=== PATIENT | female | born 2000 | race Caucasian/White ===

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

== ENCOUNTER 2023-02-27 15:00 | Outpatient (RCR) | payer MEDICAID, SELFPAY | END 2023-03-21 14:15 | disposition home or self-care (01) | LOC: HO.PT 15:00 | PROVIDERS: PCP Nurse Practitioner; Visit Provider Nurse Practitioner | DX: M41.129 Adolescent idiopathic scoliosis, site unspecified (principal) | CPT/HCPCS: 97110; 97161 ==

== ENCOUNTER 2023-08-21 22:00 | Emergency (ER) | payer MEDICAID, SELFPAY ==
--- NOTE | ~2023-08-21 | CT_ITS ---
EXAMINATION: CT HEAD WITHOUT CONTRAST CLINICAL INFORMATION: Fall. Head strike. COMPARISON: CT head 02/23/2020. TECHNIQUE: Contiguous axial imaging was performed from the skull base to vertex without intravenous administration of contrast. This CT examination was performed using dose optimization techniques as appropriate, variously including the following: *Automated exposure control *Adjustment of mA and/or kV according to patient size (this includes techniques or standardized protocols for targeted exams where dose is matched to indication/reason for exam; i.e. extremities or head) *Use of iterative reconstruction technique DLP: 597 mGy-cm FINDINGS: No intracranial hemorrhage, tumors or acute infarcts identified. The ventricles and sulci are normal in size and configuration. No focal parenchymal lesions of the brain identified. The orbits and globes are partially included in the image [id number] and demonstrate no abnormalities. No gross extracranial soft tissue inflammatory changes. No significant opacification of the visualized paranasal sinuses, mastoid air cells and middle ear cavities. CT/CT head/brain wo IV con IMPRESSION: No acute intracranial abnormalities.
--- NOTE | ~2023-08-21 | XR_ITS ---
EXAMINATION: XR CERVICAL SPINE CLINICAL INFORMATION: Neck pain after fall COMPARISON: None available. TECHNIQUE: 3 views of the cervical spine were obtained. FINDINGS: There are no prevertebral soft tissue or bony abnormalities demonstrated aside from reversal of the normal cervical lordosis. No compression fractures or subluxations are identified. Alignment is maintained at the atlanto-axial articulation. The disc spaces are preserved. No endplate changes are seen. The prevertebral soft tissues are normal. XR/XR cervical spine 2V IMPRESSION: Reversal of the normal cervical lordosis. No evidence of an acute traumatic injury.
--- NOTE | ~2023-08-21 | XR_ITS ---
EXAMINATION: XR SHOULDER, LEFT CLINICAL INFORMATION: Fall off skateboard COMPARISON: None available. TECHNIQUE: Three views of the left shoulder. FINDINGS: Glenohumeral alignment appears anatomic. No acute fracture is seen. There is slight elevation of the distal clavicle relative to the acromion, for which grade 2 acromioclavicular joint injury is a possibility. XR/XR shoulder LT min 2V IMPRESSION: Slight elevation of the distal clavicle relative to the acromion, which can be seen with grade 2 acromioclavicular joint injury.
[2023-08-21 22:09] VITALS: BP 101/69; PULSE 95; RESP 17; TEMP 36.2; O2SAT 99; BMI 21.0
[2023-08-22 00:27] VITALS: BP 101/50; PULSE 90; RESP 20; TEMP 36.8; O2SAT 98
[2023-08-22 06:39] VITALS: BP 102/68; PULSE 66; RESP 14; TEMP 36.8; O2SAT 98
--- NOTE | 2023-08-22 06:45 | ED_ITS ---
HPI - General Adult General Chief complaint: Fall Stated complaint: fell of skateboard, hit shoulder and head Time Seen by Provider: 08/22/23 06:41 Source: patient Mode of arrival: ambulatory Limitations: no limitations History of Present Illness ED Provider: Rachele Barros PA-C HPI narrative: This is a 23 yo female pmh of paranoia, migraine, substance or medication induced psychotic disorder presents with left shoulder pain and head pain after falling from her skateboard last night around 8pm. Patient states she was coming around a hill, lost her balance, and fell, landing on her left shoulder and the left side of her head. Denies LOC. Patient reports her headache is barely present anymore and rates the pain a 1-2/10 at time of examination. Patient also denies nausea, vomiting, chest pain, SOB, dizziness, blurry vision, numbness, tingling, weakness, difficulty ambulating. No trauma to teeth. Patient not on blood thinners. Related Data Home Medications ?Medication ?Instructions ?Recorded ?Confirmed norethindrone (contraceptive) 0.35 1 tab PO DAILY 02/24/20 02/24/20 mg tablet sumatriptan succinate 50 mg tablet mg PO 03/04/20 Previous Rx's ?Medication ?Instructions ?Recorded lorazepam 0.5 mg tablet 0.5 mg PO BID PRN anxiety #10 tabs 03/04/20 risperidone 0.5 mg tablet 0.5 mg PO DAILY PRN Psychosis 30 03/04/20 days #30 tabs risperidone 2 mg tablet 2 mg PO BID 30 days #60 tabs 03/04/20 trazodone 50 mg tablet 50 mg PO BEDTIME PRN Insomnia 30 03/04/20 days #30 tabs ketorolac 10 mg tablet 10 mg PO TID PRN pain 5 days #15 08/22/23 tabs Allergies Allergy/AdvReac Type Severity Reaction Status Date / Time No Known Allergies Allergy Verified 08/21/23 22:09 Review of Systems Review of Systems: Yes all other systems are reviewed and are negative PMFSH Past Medical History Attestation statement: The following information was validated with the patient. Source: old records reviewed and nursing notes reviewed Medical History No known health problems Migraine Social History Social History Household Members: None Housing: House Do you presently have visiting nurse or other home services: No Comment: pt feels like she may have to go Substance Use Type: Marijuana Advance Directives: No Advance Directives Information Provided: Yes Do you have a plan to hurt others: No Plan service: No Sexual orientation: Straight/Heterosexual Physical Exam ED Vital Signs: Vital Signs - 24 hr 08/21/23 22:09 08/22/23 00:27 08/22/23 06:39 Temperature 97.1 F 98.3 F 98.3 F Pulse Rate 95 90 66 Respiratory Rate 17 20 14 Blood Pressure 101/69 101/50 L 102/68 Pulse Oximetry 99 98 98 Oxygen Delivery Method Room Air Room Air Room Air BMI result Body Mass Index 21.0 vss. Appearance: Alert.? Oriented X3.? No acute distress.? Head: + Mild tenderness to palpation on left side. Normocephalic, atraumatic, no step-offs or deformities Eyes: Pupils equal, round and reactive to light.? Neck: Normal inspection.? Neck supple.? CVS: Normal heart rate and rhythm.? Pulses normal.? Respiratory: No respiratory distress.? Breath sounds normal.? Abdomen: Soft and nontender.? Skin: Skin warm and dry.? Normal skin color.? Normal skin turgor.? Extremities: + Mild tenderness to palpation of left distal clavicle. Patient has discomfort with ROM. 2+ brachial, radial, ulnar pulses equal and symmetric bilaterally. Back: No midline tenderness, no C-spine tenderness, full range of motion Neuro: Oriented X 3.? No motor deficit.? No sensory deficit. CN 2-12 intact Course Reevaluation(s) Reevaluation #1: X-ray of cervical spine reversal of the normal cervical lordosis no evidence of acute traumatic injury. No point tenderness on exam. Full range of motion painless. This is likely whiplash/neck spasm. Unlikely fracture, dislocation, cervical myelopathy. Head CT no acute intracranial abnormalities. Neurological function intact. Headache has resolved. This is likely concussion. X-ray of left shoulder slight elevation of the distal clavicle relative to the acromion which can be seen with grade 2 AC joint injury. Educated patient on diagnosis and treatment plan, answered all question, patient verbalizes understanding. At this time patient will be discharged home, advised to return with new or worsening symptoms. Educated on worrisome signs and symptoms and when to return. At this time I feel comfortable discharge home. Time: 10:35 Medications Administered Discontinued Medications Generic Name Dose Route Start Last Admin Trade Name Tamar PRN Reason Stop Dose Admin Ketorolac Tromethamine 30 mg 08/22/23 06:41 08/22/23 08:01 Ketorolac Tromethamine 30 Mg/Ml Vial IM 08/22/23 06:42 30 mg ONCE ONE Administration Medical Decision Making Medical Decision Making [facility] Narrative: 629 23 yo female presents with head pain and left shoulder pain status post fall off skateboard around 8pm last night. +head strike. Denies LOC, denies thinners. PE: Head: + Mild tenderness to palpation on left side. Normocephalic, atraumatic, no step-offs or deformities Extremities: + Mild tenderness to palpation of left distal clavicle. Patient has discomfort with ROM. 2+ brachial, radial, ulnar pulses equal and symmetric bilaterally. Differential: Left AC joint injury/separation at the distal clavicle, concussion. Unlikely brain bleed, fracture or dislocation, neurovascular c ompromise, threat to limb. No acute trauma to chest, abdomen, or pelvis. Plan: Imaging, pain control, sling Differential Diagnosis Differential Diagnoses: The differential diagnosis associated with the presentation includes (Left AC joint injury/separation at the distal clavicle, concussion. Unlikely brain bleed, fracture or dislocation, neurovascular compromise, threat to limb. No acute trauma to chest, abdomen, or pelvis. ) Left AC joint injury/separation at the distal clavicle, concussion. Unlikely brain bleed, fracture or dislocation, neurovascular compromise, threat to limb. No acute trauma to chest, abdomen, or pelvis. Admission/Observation Consideration of admission/observation: Escalation of care including admission/observation considered (Unlikely) Lab Data [facility] Lab Attestation statement: I reviewed the patient's lab results. Independent Interpretation I performed an independent interpretation of an: Plain X-Ray (XR/XR shoulder LT min 2V IMPRESSION: Slight elevation of the distal clavicle relative to the acromion, which can be seen with grade 2 acromioclavicular joint injury. ) and CT Scan (CT/CT head/brain wo IV con IMPRESSION: No acute intracranial abnormalities. ) Radiology Impression Discussion of test interpretation with radiology: I have reviewed the radiologist's reading. External Record Review External record reviewed: Inpatient record, Outpatient record, Prior outpatient labs, Prior outpatient radiology and Outside ED record Prescription Management I considered prescription management with: Pain Medication Chronic Conditions Patient?s care impacted by: Other (Paranoia, migraines) Discharge Plan Discharge Clinical Impression: Fall from skateboard, Separation of left acromioclavicular joint, type 2, Concussion without loss of consciousness Patient Disposition: Home, Self-Care Instructions: Concussion (ED), Shoulder Sprain (ED), Post Concussion Syndrome (ED) Additional Instructions: Take your medications as prescribed. If you were prescribed antibiotics today, it is important that you take your medication to their entirety, do not skip any doses, do not finish them early. Follow-up with your primary care provider this week. Return to the emergency department with new or worsening symptoms. Such as fevers, chills, chest pain, shortness of breath, nausea, vomiting, dizziness, headache, vision changes, lethargy In case of emergency call 911 Toradol has been sent to your pharmacy, you tolerated this well in the depart ment. Please take this as prescribed do not take this with ibuprofen, or other NSAIDs, do not mix this with alcohol. Side effects of this medication including increased risk for bleeding and possible kidney injury. Dont wear your sling at night Prescriptions: New ketorolac 10 mg tablet 10 mg PO TID PRN (Reason: pain) 5 Days Qty: 15 0RF No Action norethindrone (contraceptive) 0.35 mg tablet 1 tab PO DAILY lorazepam 0.5 mg tablet 0.5 mg PO BID PRN (Reason: anxiety) Qty: 10 0RF sumatriptan succinate 50 mg tablet PO trazodone 50 mg Tablet 50 mg PO BEDTIME PRN (Reason: Insomnia) 30 Days Qty: 30 0RF risperidone 2 mg Tablet 2 mg PO BID 30 Days Qty: 60 0RF risperidone 0.5 mg Tablet 0.5 mg PO DAILY PRN (Reason: Psychosis) 30 Days Qty: 30 0RF Referrals: [facility] [Provider Group] - 2 days Arlyn Gomes APRN [Primary Care Provider] - 2 days Stand Alone Forms: Work/School Release Interventions: ED Discharge Assessment Last Done: 08/22/23 10:35 Print Language: Belizean
[2023-08-22] MEDS: Ketorolac Tromethamine 30 MG/ML VIAL IM (08:01)
[2023-08-22 10:35] VITALS: BP 102/68; PULSE 66; RESP 14; TEMP 36.8; O2SAT 98
--- OUTSIDE RECORDS SUMMARY | 2023-08-23 10:50 | XMS_ITS | Continuity of Care Document ---
Author Organization [facility] [address] [place] [address]- Care Team Providers Care Waste Examiner Name Role Phone Dillon CONNORS, Theo Ramos Primary Care Physician Encounter PSS Date(s): 09/09/19 - 09/16/19 [facility] [address] [place] [address]- [facility] Attending Physician: Not on Staff, Attending MD Allergies, Adverse Reactions, Alerts Substance Reaction Severity Status NKA Active Immunizations Given and Recorded Vaccine Date Status Refusal Reason meningococcal group B vaccine 12/18/18 Given meningococcal group B vaccine 1 12/10/17 Given influenza virus vaccine, inactivated 12/18/18 Give n influenza virus vaccine, inactivated 2 12/10/17 Gi lupis influenza virus vaccine, inactivated 3 11/29/16 Gi lupis influenza virus vaccine, inactivated 4 11/29/15 Gi lupis influenza virus vaccine, inactivated 5 12/01/14 Gi lupis influenza virus vaccine, inactivated 12/30/13 Give n influenza virus vaccine, inactivated 6 11/21/11 Gi lupis Meningococcal Conjugate Vaccine 7 12/10/17 Given Meningococcal Conjugate Vaccine 11/26/12 Given Human Papillomavirus Vaccine 8 07/01/14 Given Human Papillomavirus Vaccine 9 02/02/14 Given Human Papillomavirus Vaccine 10 11/30/13 Given tetanus/diphtheria/pertussis, acel(Tdap) 11/26/12 Given FluMist (oldterm) 11/26/12 Given Hepatitis A Pediatric Vaccine 11 11/21/11 Given Hepatitis A Pediatric Vaccine 11/15/10 Given influenza virus vaccine, live 11/15/10 Given influ virus vac, H1N1, inactive(oldterm) 12 04/07/09 Given Influenza Live (intranasal) (oldterm) 12/11/08 Giv en Influenza Live (intranasal) (oldterm) 03/25/08 Giv en Poliovirus Vaccine, Inactivated 10/11/06 Given Poliovirus Vaccine, Inactivated 11/27/02 Given Poliovirus Vaccine, Inactivated 01 Given Poliovirus Vaccine, Inactivated 01 Given Varicella Virus Vaccine 10/11/06 Given Varicella Virus Vaccine 13 05/12/02 Given Diphth/Pertussis,Acel/Tetanus (oldterm) 10/11/06 G iven Diphth/Pertussis,Acel/Tetanus (oldterm) 11/27/02 G iven Diphth/Pertussis,Acel/Tetanus (oldterm) 01 G iven Diphth/Pertussis,Acel/Tetanus (oldterm) 01 G iven Diphth/Pertussis,Acel/Tetanus (oldterm) 01 G iven Measles/Mumps/Rubella Virus Vaccine 06/06/05 Given Measles/Mumps/Rubella Virus Vaccine 08/18/02 Given Prevnar Inj (oldterm) 11/27/02 Given Prevnar Inj (oldterm) 02/17/02 Given Prevnar Inj (oldterm) 01 Given Prevnar Inj (oldterm) 01 Given Haemophilus B Conj Vaccine (oldterm) 08/18/02 Give n Haemophilus B Conj Vaccine (oldterm) 01 Give n Haemophilus B Conj Vaccine (oldterm) 01 Give n Haemophilus B Conj Vaccine (oldterm) 01 Give n Hepatitis B Vaccine (old term) 02/17/02 Given Hepatitis B Vaccine (old term) 01 Given Hepatitis B Vaccine (old term) 01 Given 1Result Comment: [12/10/2017] Mary Lynne CNP 2Result Comment: [12/10/2017] Mary Lynne CNP 3Result Comment: [11/29/2016] Malathi Little NP 4Result Comment: [11/29/2015] ordered by Jagjit Morris M.D. 5Result Comment: [12/01/2014] Dr. Chauhan 6Admin Note: vis given private 7Result Comment: [12/10/2017] Mary Lynne CNP 8Result Comment: [07/01/2014] Dr. Quinteros 9Result Comment: [02/02/2014] Ordered by Mary Lynne NP 10Result Comment: [11/30/2013] Ordered by Irene Ron [facility] 11Admin Note: vis given 01/09/2011 state 12Admin Note: vis given state screening questions negative 13Admin Note: Varivax VIS 05/28/08 given Medications amitriptyline 25 mg oral tablet 25 mg, 1, tablet, By Mouth, Daily at bedtime, per Neurology, Refills 0, Maintenance, 04/02/19 12:36:00 EST Start Date: 04/02/19 Status: Ordered June Fe 04/06 oral tablet 1 tablet, By Mouth, Daily, # 84 tablet, 4 Refills, Maintenance, 08/22/18 17:44:47 EDT, Tablet, 1 tablet By Mouth Daily Start Date: 08/22/18 Status: Ordered magnesium gluconate 250 mg oral tablet 1 tablet = 250 mg, By Mouth, 2 times a day, # 60 tablet, 0 Refills, Maintenance, 11/20/18 15:29:48 EDT, Tablet Start Date: 11/20/18 Status: Ordered norethindrone 0.35 mg oral tablet 1 tablet = 0.35 mg, By Mouth, Daily, # 84 tablet, 1 Refills, Maintenance, 11/22/18 13:26:06 EDT, Tablet Start Date: 11/22/18 Status: Ordered riboflavin 400 mg oral capsule 1 capsule = 400 mg, By Mouth, Daily, # 100 capsule, 3 Refills, Maintenance, 11/20/18 15:29:59 EDT, Capsule Start Date: 11/20/18 Status: Ordered SUMAtriptan 25 mg oral tablet 1 tablet = 25 mg, By Mouth, Daily, PRN for migraine headache, may repeat dose after 2 hours up to amaximum of 2, # 9 tablet, 0 Refills, Maintenance, 07/10/19 8:35:00 EDT, Tablet, [facility]/pharmacy #[id number],168.6, cm, 12/18/18 15:21:00 EDT, Height, 56.3, kg,... Start Date: 07/10/19 Status: Ordered Problem List Condition Effective Dates Status Health Status Inform ant Acquired adolescent scoliosis(Confirmed) Active Migraine with aura(Confirmed) Active Vital Signs Most recent to oldest [Reference Range]: 1 Weight 55.8 kg (09/09/19 4:19 PM) Pulse Rate [55-90 bpm] 86 bpm (09/09/19 4:19 PM) Blood Pressure [71-110/30-71 mm Hg] 112/ 62mm Hg *H* (09/09/19 4:19 PM) Temperature [96.8-100.4 DegF] 98.8 DegF (09/09/19 4:19 PM) Blood pressure sites Arm, left (09/09/19 4:19 PM) Temperature Route Tympanic (09/09/19 4:19 PM) Dry Weight 55.8 kg (09/09/19 4:19 PM) Weight Obtained Via Standing scale (09/09/19 4:19 PM) Dry Weight Obtained Via Standing scale (09/09/19 4:19 PM) Social History Social History Type Response Smoking Status Never (less than 100 in lifetime) entered on: 06/13/18 Sex
--- OUTSIDE RECORDS SUMMARY | 2023-08-23 10:50 | XMS_ITS | Continuity of Care Document ---
Author Organization [facility] [address] [place] [address]- Care Team Providers Care Electrical Parts Reconditioner Name Role Phone Dillon CONNORS, Theo Ramos Primary Care Physician [phone] Encounter PSS Date(s): 12/24/19 - 12/31/19 [facility] [address] [place] [address]- [facility] Attending Physician: Malathi Sherman Allergies, Adverse Reactions, Alerts Substance Reaction Severity Status NKA Active Immunizations Given and Recorded Vaccine Date Status Refusal Reason influenza virus vaccine, inactivated 12/24/19 Give n influenza virus vaccine, inactivated 12/18/18 Give n influenza virus vaccine, inactivated 1 12/10/17 Gi lupis influenza virus vaccine, inactivated 2 11/29/16 Gi lupis influenza virus vaccine, inactivated 3 11/29/15 Gi lupis influenza virus vaccine, inactivated 4 12/01/14 Gi lupis influenza virus vaccine, inactivated 12/30/13 Give n influenza virus vaccine, inactivated 5 11/21/11 Gi lupis meningococcal group B vaccine 12/18/18 Given meningococcal group B vaccine 6 12/10/17 Given Meningococcal Conjugate Vaccine 7 12/10/17 Given Meningococcal Conjugate Vaccine 11/26/12 Given Human Papillomavirus Vaccine 8 07/01/14 Given Human Papillomavirus Vaccine 9 02/02/14 Given Human Papillomavirus Vaccine 10 11/30/13 Given tetanus/diphtheria/pertussis, acel(Tdap) 11/26/12 Given FluMist (oldterm) 11/26/12 Given Hepatitis A Pediatric Vaccine 11 11/21/11 Given Hepatitis A Pediatric Vaccine 11/15/10 Given influenza virus vaccine, live 11/15/10 Given influ virus vac, H1N1, inactive(oldterm) 12 1/21/10 Given Influenza Live (intranasal) (oldterm) 12/11/08 Giv [...] Comment: [12/10/2017] Mary Lynne CNP 2Result Comment: [11/29/2016] Malathi Litlte NP 3Result Comment: [11/29/2015] ordered by Jagjit Morris M.D. 4Result Comment: [12/01/2014] Dr. Chauhan 5Admin Note: vis given private 6Result Comment: [12/10/2017] Mary Lynne CNP 7Result Comment: [12/10/2017] Mary Lynne CNP 8Result Comment: [07/01/2014] Dr. Quinteros 9Result Comment: [02/02/2014] Ordered by Mary Lynne NP 10Result Comment: [11/30/2013] Ordered by Irene Ron [facility] 11Admin Note: vis given 01/09/2011 state 12Admin Note: vis given state screening questions negative 13Admin Note: Varivax VIS 05/28/08 given Medications amitriptyline 25 mg oral tablet 25 mg, 1, tablet, By Mouth, Daily at bedtime, per Neurology, Refills 0, Maintenance, 04/02/19 12:36:00 EST Start Date: 04/02/19 Status: Ordered 04/06 oral tablet 1 tablet, By Mouth, [...] 0 Refills, Maintenance, 07/10/19 8:35:00 EDT, Tablet, [facility]/pharmacy #[id number],168.6, cm, 12/18/18 15:21:00 EDT, Height, 56.3, kg,... Start Date: 07/10/19 Status: Ordered Problem List Condition Effective Dates Status Health Status Inform ant Acquired adolescent scoliosis(Confirmed) Active Migraine with aura(Confirmed) Active Vital Signs Most recent to oldest [Reference Range]: 1 Height 167.8 cm (12/24/19 11:04 AM) Weight 58.9 kg (12/24/19 11:04 AM) Pulse Rate [55-90 bpm] 102 bpm *H* (12/24/19 11:04 AM) Body Mass Index [18.5-24.99] 20.92 (12/24/19 11:04 AM) Blood Pressure [71-110/30-71 mm Hg] 96/5 0mm Hg (12/24/19 11:04 AM) Blood pressure sites Arm, right (12/24/19 11:04 AM) Dry Weight 58.9 kg (12/24/19 11:04 AM) Weight Obtained Via Standing scale (12/24/19 11:04 AM) Dry Weight Obtained Via Standing scale (12/24/19 11:04 AM) Social History Social History Type Response Smoking Status Never (less than 100 in lifetime) entered on: 06/13/18 Sex
--- OUTSIDE RECORDS SUMMARY | 2023-08-23 10:50 | XMS_ITS | Continuity of Care Document ---
Author Organization [facility] Address [address] [place] [address]- Care Team Providers Care Pool Player Name Role Phone Dillon CONNORS, Theo Ramos Primary Care Physician Encounter PSS Date(s): 03/14/20 - 03/21/20 [facility] [place] [place] [address] [place] [address]- Attending Physician: Not on Staff, Attending MD [...] Mary Lynne CNP 2Result Comment: [11/29/2016] Malathi Little NP 3Result Comment: [11/29/2015] ordered by Jagjit Morris M.D. 4Result Comment: [12/01/2014] Dr. Chauhan 5Admin Note: vis given private 6Result Comment: [12/10/2017] Mary Lynne CNP 7Result Comment: [12/10/2017] Mary Lynne CNP 8Result Comment: [07/01/2014] Dr. Quinteros 9Result Comment: [02/02/2014] Ordered by Mary Lynne NP 10Result Comment: [11/30/2013] Ordered by Irene Ron [facility] 11Admin Note: vis given 01/09/2011 state 12Admin Note: vis given state screening questions negative 13Admin Note: Varivax VIS 05/28/08 given Medications LORazepam 0.5 mg oral tablet 1 tablet = 0.5 mg, By Mouth, 2 times a day, PRN as needed for anxiety, per Psych, # 10 tablet, 0 Refills, Maintenance, 03/14/20 17:00:00 EST, Tablet, Partial fill upon patient request if the prescription is for a schedule II opioid drug. Start Date: 03/14/20 Status: Ordered norethindrone 0.35 mg oral tablet 1 tablet = 0.35 mg, By Mouth, Daily, # 84 tablet, 0 Refills, Maintenance, 01/29/20 13:52:00 EST, Tablet, [facility]/pharmacy #[id number], Partial fill upon patient request, 167.8, cm, 01/29/20 13:38:00 EST, Height, 58.5, kg, 01/29/20 9:51:00 EST, Dry Weight Start Date: 01/29/20 Status: Ordered risperiDONE 0.5 mg oral tablet 0.5 mg, 1, tablet, By Mouth, Daily, PRN, per Psych, # 30 tablet, Refills 0, Maintenance, Anxiety, 03/04/20 17:00:00 EST, Partial fill upon patient request if the prescription is for a schedule II opioid drug. Start Date: 03/04/20 Status: Ordered risperiDONE 2 mg oral tablet 2 mg, 1, tablet, By Mouth, 2 times a day, per Psych, # 60 tablet, Refills 0, Maintenance, 03/04/20 17:00:00 EST, Partial fill upon patient request if the prescription is for a schedule II opioid drug. Start Date: 03/04/20 Status: Ordered SUMAtriptan 25 mg oral tablet 1 tablet = 25 mg, By Mouth, Daily, PRN for migraine headache, may repeat dose after 2 hours up to amaximum of 2, # 9 tablet, 0 Refills, Maintenance, 07/10/19 8:35:00 EDT, Tablet, [facility]/pharmacy #[id number],168.6, cm, 12/18/18 15:21:00 EDT, Height, 56.3, kg,... Start Date: 07/10/19 Status: Ordered traZODone 50 mg oral tablet 50 mg, 1, tablet, By Mouth, Daily at bedtime, PRN, per Psych, # 30 tablet, Refills 0, Maintenance, Anxiety, 03/14/20 17:01:00 EST, Partial fill upon patient request if the prescription is for a schedule II opioid drug. Start Date: 03/14/20 Status: Ordered Problem List Condition Effective Dates Status Health Status Inform ant Acquired adolescent scoliosis(Confirmed) Active Migraine with aura(Confirmed) Active Psychotic disorder(Confirmed) 1 02/23/20 Active 1admitted 02/22-03/05 Vital Signs Most recent to oldest [Reference Range]: 1 Weight 62.2 kg (03/14/20 4:10 PM) Pulse Rate [55-90 bpm] 86 bpm (03/14/20 4:10 PM) Blood Pressure [71-110/30-71 mm Hg] 110/ 70mm Hg (03/14/20 4:10 PM) Blood pressure sites Arm, left (03/14/20 4:10 PM) Dry Weight 62.2 kg (03/14/20 4:10 PM) Weight Obtained Via Standing scale (03/14/20 4:10 PM) Dry Weight Obtained Via Standing scale (03/14/20 4:10 PM) Social History Social History Type Response Smoking Status Never (less than 100 in lifetime) entered on: 06/13/18 Sex
--- OUTSIDE RECORDS SUMMARY | 2023-08-23 10:50 | XMS_ITS | Continuity of Care Document ---
Author Organization [facility] [address] [place] [address]- Care Team Providers Care Reconstructive Dentist Name Role Phone Dillon CONNORS, Theo Ramos Primary Care Physician Encounter PSS Date(s): 01/06/21 - 01/13/21 [facility] [address] [address]- Attending Physician: Idalia OYSTER SORTER, Mandie Quintana Allergies, Adverse Reactions, Alerts Substance Reaction Severity Status NKA Active Immunizations Given and Recorded Vaccine Date Status Refusal Reason SARS-CoV-2 (COVID-19) mRNA BNT-162b2 vac 07/29/20 Recorded SARS-CoV-2 (COVID-19) mRNA BNT-162b2 vac 07/08/20 Recorded influenza virus vaccine, inactivated 12/24/19 Give n [...] Given tetanus/diphtheria/pertussis, acel(Tdap) 11/26/12 Given FluMist (oldterm) 9/11/13 Given Hepatitis A Pediatric Vaccine 11 11/21/11 [...] 10Result Comment: [11/30/2013] Ordered by Irene Ron [facility] 11Admin Note: vis given 01/09/2011 [...] 0 Refills, Maintenance, 01/29/20 13:52:00 EST, Tablet, [facility]/pharmacy #[id number], Partial fill upon patient request, 167.8, cm, [...] recent to oldest [Reference Range]: 1 Height 167.5 cm (01/06/21 11:29 AM) Weight 60.4 kg (01/06/21 11:29 AM) Pulse Rate [55-90 bpm] 112 bpm *H* (01/06/21 11:29 AM) Body Mass Index [18.5-24.99] 21.53 (01/06/21 11:29 AM) Blood Pressure [90-138/55-84 mm Hg] 112/ 64mm Hg (01/06/21 11:29 AM) Dry Weight 60.4 kg (01/06/21 11:29 AM) Weight Obtained Via Standing scale (01/06/21 11:29 AM) Dry Weight Obtained Via Standing scale (01/06/21 11:29 AM) Social History Social History Type Response Smoking Status Never (less than 100 in lifetime) entered on: 06/13/18 Sex
--- OUTSIDE RECORDS SUMMARY | 2023-08-23 10:50 | XMS_ITS | Summary of Care ---
Author Organization [facility] Address [address] [place] [id number]- Care Team Providers Care Branch Coordinator Name Role Phone P[facility] OF [employer] Primary C are Physician Encounter [facility]B_CSN [id number] Date(s): 09/28/19 - 09/28/[address] [address]- [facility] Encounter Diagnosis Chronic tension-type headache, not intractable(Final) - Migraine with aura, not intractable, without status migrainosus(Final) - Discharge Disposition: Discharge Attending Physician: MARYANNE CONNORS, THANG Aponte Referring Physician: LEANDER CAMARENA MD Allergies, Adverse Reactions, Alerts No Known Allergies Medications amitriptyline 25 mg oral tablet Dose: 25 mg, Dose Amount: 1 tab, PO, bedtime, Special Instructions: Take 30-60 minutes before bedtime, Dispense Quantity: 30 tab, Refills: 5, Entered: 09/28/19 16:45:00 EDT, [id number] Start Date: 09/28/19 Status: Ordered Imitrex 50 mg oral tablet Dose: 50 mg, Dose Amount: 1 tab, PO, 1time, Special Instructions: prn migraine aura may repeat dosein 2 hours if needed, Dispense Quantity: 9 tab, Entered: 09/28/19 16:45:00 EDT, [id number] Start Date: 09/28/19 Status: Ordered Problem List Condition Effective Dates Status Health Status Inform ant Chronic tension type headache.(Confirmed) 1 Active Migraine with aura(Confirmed) 2 Active 1Added by [facility] 2Added by [facility]
--- OUTSIDE RECORDS SUMMARY | 2023-08-23 10:50 | XMS_ITS | Summary of Care ---
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
--- OUTSIDE RECORDS SUMMARY | 2023-08-23 10:50 | XMS_ITS | Continuity of Care Document ---
Author Organization [facility] Address [address] [place] [address]- Care Team Providers Care Parent Educator Name Role Phone Dillon CONNORS, Theo Ramos Primary Care Physician [phone] Encounter [facility] Date(s): 01/29/20 - 02/28/20 [facility] [employer] [facility] [address] [place], [place] [address] Attending Physician: Admdemond, Lesly Admitting Physician: Admtr, [id number] Referring Physician: Admtr, [id number] Allergies, Adverse Reactions, Alerts Substance Reaction Severity [...] 0 Refills, Maintenance, 01/29/20 13:52:00 EST, Tablet, [id number], Partial fill upon patient request, 167.8, cm, 01/29/20 13:38:00 EST, Height, 58.5, kg, 01/29/20 9:51:00 EST, Dry Weight Start Date: 01/29/20 Status: Ordered riboflavin 400 mg oral capsule [...] adolescent scoliosis(Confirmed) Active Migraine with aura(Confirmed) Active Social History Social History Type Response Smoking Status Never (less than 100 in lifetime) entered on: 06/13/18 Sex
== END 2023-08-22 11:16 | disposition home or self-care (01) ==
PROVIDERS: Emergency Provider Student in an Organized Health Care Education/Training Program; PCP Nurse Practitioner
DX: S06.0X0A Concussion without loss of consciousness, initial encounter (principal); S43.52XA Sprain of left acromioclavicular joint, initial encounter; R51.9 Headache, unspecified; M54.2 Cervicalgia; M25.512 Pain in left shoulder; V00.131A Fall from skateboard, initial encounter; Y93.9 Activity, unspecified; Y92.410 Unspecified street and highway as the place of occurrence of the external cause; Y99.8 Other external cause status; Z79.899 Other long term (current) drug therapy
CPT/HCPCS: 70450; 72040; 73030; 96372; 99284; J1885

== ENCOUNTER 2023-09-17 13:02 | Outpatient (AMB) | payer MEDICAID, SELFPAY ==
--- NOTE | 2023-09-17 13:08 | A.OFFVIS_ITS ---
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 She was seen in [facility] ED on 08/22/23 after falling off her skateboard and landing on her shoulder. Pt states she is in no pain. Pt states she was given a sling in the ED which she used for a week. She states that was helpful and no longer uses it. Pt states she is feeling better and she no longer has any concerns. The patient states that she does not notice any bump or deformity at her left acromioclavicular joint. Allergies No Known Allergies Allergy (Verified 09/17/23 13:08) Medication List - Last Reconciled 09/17/23 by Honorio Reno MD buspirone 15 mg PO BID lamotrigine 200 mg PO DAILY spironolactone 100 mg PO BEDTIME spironolactone 50 mg PO QAM [facility] Medical History No known health problems Migraine Social History Household Members: None Housing: House Do you presently have visiting nurse or other home services: No Comment: pt feels like she may have to go Substance Use Type: Marijuana service: No Sexual orientation: Straight/Heterosexual Physical Exam Const Other: Well-nourished well-developed very friendly female awake alert and oriented x3 in no acute distress Extrem Other: Bilateral upper extremity examination shows good capillary refill, no skin lesions noted, normal sensation light touch Left shoulder examination shows full range of motion when compared to her right shoulder with no discomfort, no tenderness over her acromioclavicular joint, no instability Results Reviewed Results Reviewed: X-rays of the patient's left shoulder taken previously show a possible type 2 acromioclavicular joint injury Assessment & Plan Assessment & Plan (1) Left shoulder pain: Code(s): M25.512 - Pain in left shoulder Category: Medical Plan Ms. Molina presents with a history of left shoulder pain after falling off of a skateboard last month. At this point the patient is completely asymptomatic. The patient's x-rays do show a possible type 2 acromioclavicular joint injury versus possible anatomic variant. There is no indication for any type of treatment. She is encouraged to continue with her range motion exercises to prevent stiffness. She will follow up with me on an as-needed basis should her symptoms returned. Feel free to call me at any time should questions regarding her orthopedic management arise. I spent 22 minutes in reviewing the patient's records and imaging studies, seeing the patient and documenting in the medical record. Medications: Discontinued risperidone Discontinued Reason: Patient no longer taking 2 mg PO BID 30 days 60 tabs 0RF lorazepam Discontinued Reason: Patient no longer taking 0.5 mg PO BID PRN 10 tabs 0RF anxiety risperidone Discontinued Reason: Patient no longer taking 0.5 mg PO DAILY 30 days PRN 30 tabs 0RF Psychosis trazodone Discontinued Reason: Patient no longer taking 50 mg PO BEDTIME 30 days PRN 30 tabs 0RF Insomnia ketorolac Discontinued Reason: Patient no longer taking 10 mg PO TID 5 days PRN 15 tabs 0RF pain Coding Level of Care Code New Pt Level 3 (62211) Diagnoses Left shoulder pain M25.512
== END 2023-09-17 13:23 | disposition home or self-care (01) ==
PROVIDERS: PCP Nurse Practitioner; Visit Provider Orthopaedic Surgery
DX: M25.512 Pain in left shoulder (principal)
CPT/HCPCS: 99203

== ENCOUNTER → 2023-09-17 13:02 | Outpatient (BNVA) | payer MEDICAID, SELFPAY | PROVIDERS: PCP Nurse Practitioner; Visit Provider Orthopaedic Surgery | DX: S49.82XA Other specified injuries of left shoulder and upper arm, initial encounter (principal); V00.138A Other skateboard accident, initial encounter; Y93.51 Activity, roller skating (inline) and skateboarding; Y92.9 Unspecified place or not applicable; Y99.9 Unspecified external cause status | CPT/HCPCS: 99202 ==